=== PATIENT | female | born 1950 | race Caucasian/White ===

== ENCOUNTER → 2017-07-17 | Day surgery (SDC) | payer OTHER ==
[~2017-07-17] VITALS: Ht 157.5 cm; Wt 102.5 kg
[~2017-07-17] MED LIST: AMLO5TAB2 PO; ANGIOMAX 250 MG VIAL IV ONE; CLON0.3T PO; ENAL20TA70 PO; FURO40TA4 PO; GLIP-115 PO; INSDRIP SC; INSUINJ48 SC; IODIXANOL 320MG/ML 100ML BTL IV ONE; LIDOCAINE HCL 2 %PF INJ 10ML AMP IJ ONE; METF-372 PO; METO1TAB9 PO; MIDAZOLAM HCL 1MG/1ML-2 ML VIAL ONE; MONT10TA34 PO; NITROGLYCERIN 0.4MG/DOSE SPRAY 4.9GM ONE; PANT40T PO; SIMV10TA84 PO; SODIUM CHL 0.9% 0 ML ONE; TRAM50TA2 PO; TRAZ100T2 PO; fentaNYL CITRATE 100 MCG/2 ML VL ONE
== END | disposition home or self-care (01) ==
LOC: CATH 10:29
PROVIDERS: ATTEND Internal Medicine
DX: I34.0 Nonrheumatic mitral (valve) insufficiency (principal); I27.20 Pulmonary hypertension, unspecified; Z88.0 Allergy status to penicillin; Z88.8 Allergy status to other drugs, medicaments and biological substances; Z88.6 Allergy status to analgesic agent; I10 Essential (primary) hypertension; Z87.891 Personal history of nicotine dependence; E78.5 Hyperlipidemia, unspecified; J45.909 Unspecified asthma, uncomplicated; G47.30 Sleep apnea, unspecified; Z88.1 Allergy status to other antibiotic agents; E66.9 Obesity, unspecified; M19.90 Unspecified osteoarthritis, unspecified site
CPT/HCPCS: 93458; C1760; C1894; J1644; J2250; J3010; J7030; Q9967; 99152; 99153; C1751